=== PATIENT | male | born 1985 | race Hispanic/Latino ===

== ENCOUNTER 2017-03-27 01:01 | Emergency (ER) | payer BC ==
[2017-03-27 01:21] VITALS: TEMP 97.9
[2017-03-27 01:54] LABS: BASO # 0.1 K/uL (0.0-0.2); BASO % 0.8 % (0.0-2.0); EOS # 0.2 K/uL (0.0-0.7); EOS % 2.3 % (0.0-4.0); HEMATOCRIT 46.1 % (35.0-51.0); LYMPH # 3.3 K/uL (1.0-4.3); LYMPH % 41.2 % (20.0-40.0); MEAN CELL VOLUME 89.7 fL (80.0-94.0); MEAN CORPUSCULAR HEMOGLOBIN 30.8 pg (27.0-31.0); MEAN CORPUSCULAR HGB CONC 34.4 g/dL (33.0-37.0); MEAN PLATELET VOLUME 7.5 fL (7.2-11.7); MONO # 0.7 K/uL (0.0-0.8); MONO % 8.3 % (0.0-10.0); NRBC % 0.1 % (0.0-2.0); RED CELL DISTRIBUTION WIDTH 12.9 % (11.5-14.5); WHITE BLOOD COUNT 8.1 K/uL (4.8-10.8)
[2017-03-27 02:03] VITALS: PULSE 75
[2017-03-27 02:07] LABS: ALB/GLOB RATIO 1.1 (1.0-2.1); ALKALINE PHOSPHATASE 63 U/L (38-126); ALT/SGPT 81 U/L (21-72); AST/SGOT 30 U/L (17-59); BILIRUBIN,TOTAL 0.7 mg/dL (0.2-1.3); BLOOD UREA NITROGEN 13 mg/dL (9-20); CALCIUM 8.2 mg/dl (8.6-10.4); CARBON DIOXIDE 22 mmol/L (22-30); CHLORIDE 103 mmol/L (98-107); GFR AFRICAN-AMERICAN > 60; GLUCOSE,RANDOM 85 mg/dL (75-110); POTASSIUM 3.9 mmol/L (3.6-5.2); SODIUM 138 mmol/L (132-148); TOTAL PROTEIN 7.9 g/dL (6.3-8.3)
--- NOTE | 2017-03-27 02:40 | C.PDOC ---
History Of Present Illness 31 year old male presents to the ER with a complaint of left sided chest pain since yesterday that he describes as a heavy discomfort that radiates to the left neck and arm area. Patient reports the pain has improved today and now feels dull and achy, he took a motrin with some relief. Patient reports he works long hours and has had very little amount of sleep over the past few months. Patient denies palpitations, SOB, dizziness, diaphoresis, drug use, smoking, family Hx of significant cardiac disease, recent travel, or recent periods of immobility. Time Seen by Provider: 03/27/17 01:23 Chief Complaint (Nursing): Chest Pain History Per: Patient History/Exam Limitations: no limitations Onset/Duration Of Symptoms: Days Current Symptoms Are (Timing): Still Present Quality: Dull, Aching Associated Symptoms: denies: Nausea, Dyspnea, Diaphoresis, Syncope Modifying Factors: None Exacerbating Factors: None Alleviating Factors: None Recent travel outside of the [place]: No Past Medical History Reviewed: Historical Data, Nursing Documentation, Vital Signs Vital Signs: Last Vital Signs Temp 97.9 F 03/27/17 01:17 Pulse 75 03/27/17 02:59 Resp 17 03/27/17 02:59 BP 153/98 H 03/27/17 02:59 Pulse Ox 99 03/27/17 05:41 - Medical History PMH: No Chronic Diseases Surgical History: No Surg Hx Family History: States: No Known Family Hx - Social History Hx Tobacco Use: No Hx Alcohol Use: Yes Hx Substance Use: No - Immunization History Hx Tetanus Toxoid Vaccination: No Hx Influenza Vaccination: No Hx Pneumococcal Vaccination: No Review Of Systems Constitutional: Negative for: Fever, Chills, Sweats Cardiovascular: Positive for: Chest Pain. Negative for: Palpitations Respiratory: Negative for: Shortness of Breath Neurological: Negative for: Dizziness Physical Exam - Physical Exam Appears: Non-toxic, No Acute Distress Skin: Normal Color, Warm, Dry Head: Atraumatic, Normacephalic Eye(s): bilateral: Normal Inspection Oral Mucosa: Moist Neck: Normal, No Midline Cervical Tenderness, No Paracervical Tenderness, Supple Chest: Symmetrical, No Tenderness Cardiovascular: Rhythm Regular, No Murmur Respiratory: Normal Breath Sounds, No Rales, No Rhonchi, No Wheezing Gastrointestinal/Abdominal: Soft, No Tenderness Extremity: Normal ROM (x4), No Calf Tenderness Neurological/Psych: Oriented x3, Normal Speech ED Course And Treatment - Laboratory Results Result Diagrams: 03/27/17 01:51 03/27/17 01:51 ECG: Interpreted By Me, Viewed By Me ECG Rhythm: Sinus Rhythm, R BBB (Incomplete) ECG Interpretation: Normal Rate From EC O2 Sat by Pulse Oximetry: 99 (Room air) Pulse Ox Interpretation: Normal - Radiology CXR: Interpreted by Me, Viewed By Me CXR Interpretation: Yes: No Acute Disease. No: Infiltrates Progress Note: CXR and blood work ordered, results are within normal limits. Patient is resting comfortably, is no longer having chest pain or shortness of breath. Patient has no risk factors for pulmonary emboli or DVT. Clinical presentation is not suggestive of aortic dissection. Patient is being discharged home with instructions to take OTC medication as needed and to follow up with PMD in 1-2 days for cardiology referral. return precautions were discussed and understood by the pt. Disposition Counseled Patient/Family Regarding: Diagnosis, Need For Followup - Disposition Referrals: [facility] [Outside] [facility] [Outside] Disposition: HOME/ ROUTINE Disposition Time: 02:37 Condition: STABLE Additional Instructions: Please follow up with PMD or in clinic for cardiac referral Take tylenol or advil for pain Return to ER if symptoms worsen Instructions: Chest Pain (ED) Forms: [facility] (Azerbaijani), Work Excuse - Clinical Impression Clinical Impression: Chest pain - Scribe Statement The provider has reviewed the documentation as recorded by the Scribe Alejandro Quevedo All medical record entries made by the Scribe were at my direction and personally dictated by me. I have reviewed the chart and agree that the record accurately reflects my personal performance of the history, physical exam, medical decision making, and the department course for this patient. I have also personally directed, reviewed, and agree with the discharge instructions and disposition.
[2017-03-27 03:01] VITALS: BP 153/98; RESP 17
[2017-03-27 04:14] VITALS: O2SAT 99
--- NOTE | 2017-03-27 08:34 | RAD ---
PROCEDURE: CHEST RADIOGRAPH, 1 VIEW HISTORY: chest pain COMPARISON: None available. FINDINGS: LUNGS: Clear. PLEURA: No pneumothorax or pleural fluid seen. CARDIOVASCULAR: Normal. OSSEOUS STRUCTURES: No significant abnormalities. VISUALIZED UPPER ABDOMEN: Normal. OTHER FINDINGS: None. IMPRESSION: No active disease.
--- NOTE | 2017-03-30 18:31 | CARD ---
APPROVED REPORT EKG Measurement Heart [id number] <Conclusion> Normal sinus rhythm Incomplete right bundle branch block Borderline ECG
== END 2017-03-27 03:00 | disposition home or self-care (01) ==
LOC: C.ER 01:01
DX: R07.9 Chest pain, unspecified (principal)

== ENCOUNTER 2017-05-30 19:14 | Emergency (ER) | payer BC ==
[2017-05-30 19:38] VITALS: PULSE 60
--- NOTE | 2017-05-30 21:18 | C.PDOC ---
History Of Present Illness 31 y/o male presents to ED with complaints of reproducible pain in the left sternal of chest that began 3 days ago. 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 Pt admits to recent lifting weights with upper body at the gym. Denies any other complaints. Time Seen by Provider: 05/30/17 20:52 Chief Complaint (Nursing): Chest Pain History Per: Patient History/Exam Limitations: no limitations Onset/Duration Of Symptoms: Hrs Current Symptoms Are (Timing): Still Present Modifying Factors: None Exacerbating Factors: None Alleviating Factors: None Recent travel outside of the [place]: No Past Medical History Reviewed: Historical Data, Nursing Documentation, Vital Signs Vital Signs: Last Vital Signs Temp 98.4 F 05/30/17 21:38 Pulse 60 05/30/17 21:38 Resp 18 05/30/17 21:38 BP 119/76 05/30/17 21:38 Pulse Ox 98 05/30/17 21:38 - Medical History PMH: No Chronic Diseases Surgical History: No Surg Hx Family History: States: No Known Family Hx - Social History Hx Tobacco Use: No Hx Alcohol Use: Yes Hx Substance Use: No - Immunization History Hx Tetanus Toxoid Vaccination: No Hx Influenza Vaccination: No Hx Pneumococcal Vaccination: No Review Of Systems Constitutional: Negative for: Fever Cardiovascular: Positive for: Chest Pain (reproducible pain in left sternal). Negative for: Palpitations Respiratory: Negative for: Shortness of Breath Gastrointestinal: Negative for: Nausea, Vomiting, Abdominal Pain, Diarrhea Neurological: Negative for: Weakness, Numbness Physical Exam - Physical Exam Appears: Well, Non-toxic, No Acute Distress Skin: Normal Color, Warm, Dry, No Rash Head: Atraumatic, Normacephalic Eye(s): bilateral: Normal Inspection Oral Mucosa: Moist Neck: Supple Chest: Symmetrical, No Tenderness, Other (left reproducible pain intercostal space t5) Cardiovascular: Rhythm Regular Respiratory: Normal Breath Sounds, No Rales, No Rhonchi, No Wheezing Gastrointestinal/Abdominal: Soft, No Tenderness Neurological/Psych: Oriented x3, Normal Speech, Normal Cognition ED Course And Treatment O2 Sat by Pulse Oximetry: 99 (RA) Pulse Ox Interpretation: Normal Medical Decision Making Medical Decision Making: Administered Motrin. 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 seen by Cardio 04/12 normal EST, Card Echo and CT CHest most probably musculoskeletal due to positional and digital reproducability and normal EKG and typical findings/history Disposition Doctor Will See Patient In The: Office Counseled Patient/Family Regarding: Studies Performed, Diagnosis - Disposition Referrals: [facility] [Outside] Disposition: HOME/ ROUTINE Disposition Time: 21:18 Condition: GOOD Additional Instructions: ice packs 1/2 hour per hour nothing hot, no hot showers Motrin 400-600 mg every 6 hours as needed. No heavy lifting with chest muscles for 1 month. Follow-up with your PMD or our outpatient Clinic as needed. Instructions: Costochondritis (ED) Forms: [facility] (Barbadian) - Clinical Impression Clinical Impression: Chest wall discomfort - Scribe Statement The provider has reviewed the documentation as recorded by the Scribe Home Krishnan All medical record entries made by the Scribe were at my direction and personally dictated by me. I have reviewed the chart and agree that the record accurately reflects my personal performance of the history, physical exam, medical decision making, and the department course for this patient. I have also personally directed, reviewed, and agree with the discharge instructions and disposition.
[2017-05-30 21:39] VITALS: BP 119/76; RESP 18; TEMP 98.4
[2017-05-31 00:18] VITALS: O2SAT 99
== END 2017-05-30 21:39 | disposition home or self-care (01) ==
LOC: C.ER 19:14
DX: R07.9 Chest pain, unspecified (principal)

== ENCOUNTER → 2018-03-26 01:17 | Emergency (ER) | payer BC | END | disposition left against medical advice (07) | LOC: C.ER 01:17 | DX: Z02.89 Encounter for other administrative examinations (principal); M79.605 Pain in left leg ==